=== PATIENT | male | born 1965 | race Two or more races ===

== ENCOUNTER 2017-11-22 13:51 | Outpatient (CLI) | payer OTHER ==
[~2017-11-22 13:51] MED LIST: ACETAMINOOPHEN-1 TAB PO; ATIVAN2 M1 PO; CIPRO750 MG PO; CLONAZEPAM1 MG PO; DOCUSATE SODIU100 MG PO; ENALAPRIL MALEA10 MG PO; EXELON1 EACH TD; FLUCYTOSINE PO; HALOPERIDOL5 MG PO; METHYLPRED4 MG/DOSE- PO; NAMENDA10 MG PO; NEURONTIN PO; PERCOCET 5/3251 TAB PO; SYNTHROID150 MCG PO; TEMAZEPAM15 MG PO; XYZAL PO; [UNRECOGNIZED DRUG - OTHER] PO
== END 2017-11-22 13:54 | disposition home or self-care (01) ==
LOC: RAD 13:51
DX: M51.36 Other intervertebral disc degeneration, lumbar region (principal); M50.30 Other cervical disc degeneration, unspecified cervical region; Z98.1 Arthrodesis status